=== PATIENT | male | born 1930 | race Caucasian/White ===

== ENCOUNTER 2017-10-19 09:06 | Inpatient (IN) ==
--- NOTE | 2017-10-19 09:44 | ED ---
HPI General Chief Complaint: Back Pain/Injury Stated Complaint: back pain Time Seen by Provider: 10/19/17 09:22 Source: patient and family Mode of arrival: ambulatory Limitations: no limitations History of Present Illness HPI Narrative: Patient is an 87-year-old male, past medical history significant for diffuse B-cell lymphomacurrently in remission for approximately 6 months, in addition to a DVT for which he is on Xarelto, who presents with complaint of back pain over the last 3 days that came on suddenly. He does not know what makes it better or worse. No positions change the discomfort. He denies chest pain and dyspnea. When the pain started 3 days ago he started taking Advil and did stop taking his Xarelto. No numbness nor weakness. No changes in speech, swallowing. No difficulty walking. No urinary retention or incontinence. MD Complaint: back pain Onset (ago): day(s) Duration: constant Similar Symptoms Previously: No Location: thoracic spine Severity: moderate Quality: aching Radiation: other Relieving factors: none Exacerbating factors: none Context: other Associated symptoms: denies other symptoms Treatments prior to arrival: NSAIDS Related Data Home Medications Medication Instructions Recorded Confirmed amiodarone 200 mg PO BID 10/19/17 10/19/17 carvedilol 6.25 mg PO BID 10/19/17 10/19/17 levothyroxine 50 mcg PO DAILY 10/19/17 10/19/17 rivaroxaban [Xarelto] 15 mg PO DAILY 10/19/17 10/19/17 Allergies Allergy/AdvReac Type Severity Reaction Status Date / Time No Known Allergies Allergy Uncoded 03/18/14 06:53 Review of Systems ROS: all other systems reviewed are negative Constitutional Denies chills and Denies fever(s) Eyes Denies blurry vision ENT Denies nasal congestion Cardiovascular Denies chest pain Respiratory Denies dyspnea Gastrointestinal Denies abdominal pain, Denies nausea and Denies vomiting Genitourinary Denies flank pain Musculoskeletal Reports back pain and Denies neck pain Integumentary/Breasts Denies rash Neurologic Denies headache(s) Psychiatric Denies confusion [facility] Medical History Medical History Afib (Acute) Appendicitis (Acute) B-cell lymphoma (Acute) DVT (deep venous thrombosis) (Acute) Hard of hearing (Acute) History of radiation therapy (Acute) ICD (implantable cardioverter-defibrillator) in place (Acute) Surgical History Surgical History H/O prostatectomy (Acute) Hx of cholecystectomy (Acute) Social History Social History Substance History: No History of Abuse Smoking Status: Former smoker How Often Do You Have a Drink Containing Alcohol: Monthly or less Recent Travel in [facility] within the Last 8 Weeks: No Recent Out of Country Travel within the Last 8 Weeks: No Exam Narrative Exam Narrative: GENERAL: Well-appearing male in no acute distress SKIN: Focused skin assessment warm/dry. No rashes. HEAD: Atraumatic. Normocephalic. EYES: Pupils equal and round. No scleral icterus. No injection or drainage. ENT: No nasal bleeding or discharge. Mucous membranes pink and moist. NECK: Trachea midline. No JVD. CARDIOVASCULAR: Bradycardic (50s), ICD present. No murmur appreciated. Intact and equal peripheral pulses. RESPIRATORY: No accessory muscle use. Clear to auscultation. Breath sounds equal bilaterally. GASTROINTESTINAL: Abdomen soft, non-tender, nondistended. Hepatic and splenic margins not palpable. MUSCULOSKELETAL: No obvious deformities. No clubbing. No cyanosis. No edema. NEUROLOGICAL: Awake and alert. No obvious cranial nerve deficits. Motor within normal limits. Normal sensation. No ataxia. Normal speech. PSYCHIATRIC: Appropriate mood and affect; insight and judgment normal. Back/Spine/Pelvis Male Torso BACK: 2 1. Area of pain. No pain nor tenderness at time of exam. Course Initial Documented Vital Signs Temperature 97.5 F L 10/19/17 09:11 Pulse Rate 51 L 10/19/17 09:11 Respiratory Rate 17 10/19/17 09:11 Blood Pressure 141/63 H 10/19/17 09:11 Pulse Oximetry 96 10/19/17 09:11 Last Documented Vital Signs Temperature 97.5 F L 10/19/17 09:11 Pulse Rate 49 L 10/19/17 11:49 Respiratory Rate 18 10/19/17 11:49 Blood Pressure 151/69 H 10/19/17 11:49 Pulse Oximetry 97 10/19/17 11:49 Medical Decision Making MDM Narrative Medical decision making narrative: Patient is an 87-year-old male, past medical history significant for diffuse B-cell lymphoma and DVT for which he is supposed to be on Xarelto, who presents with complaint of left upper back pain for 3 days. He is hemodynamically stable on arrival to the emergency department. On arrival a CT PE was ordered as this would evaluate for, and could also evaluate the thoracic spine this could not be done secondary to his baseline renal dysfunction. CT of the thoracic spine was then done did not show any acute injury. VQ scan showed a low intermediate probability of a pulmonary embolism. Patient was given his Xarelto and admitted to the hospital for further evaluation and management of his possible pulmonary embolism. Differential Diagnosis Differential Diagnosis: Differential diagnosis includes but is not limited to acute coronary syndrome, pulmonary embolism, aortic dissection, metastatic disease, pneumonia, muscle spasm. Medical Records Medical records reviewed: Yes I reviewed the patient's medical records. Lab Data Lab results reviewed: Yes I reviewed the patient's lab results. Lab results narrative: Labs unremarkable except for baseline renal dysfunction. Result diagrams: 10/19/17 09:38 10/19/17 09:38 Lab Results 10/19/17 10/19/17 Range/Units 09:38 09:38 WBC 6.2 (4.0-11.0) th/mm3 RBC 4.98 (4.50-5.90) mil/mm3 Hgb 13.6 (13.0-17.0) gm/dL Hct 41.4 (39.0-51.0) % MCV 83.0 (80.0-100.0) fL MCH 27.3 (27.0-34.0) pg MCHC 32.9 (32.0-36.0) % RDW 16.4 (11.6-17.2) % Plt Count 199 (150-450) th/mm3 MPV 8.9 (7.0-11.0) fL Neut % (Auto) 71.7 H (16.0-70.0) % Lymph % (Auto) 15.8 (9.0-44.0) % Dixon % (Auto) 10.2 H (0.0-8.0) % Eos % (Auto) 1.6 (0.0-4.0) % Baso % (Auto) 0.7 (0.0-2.0) % Neut # (Auto) 4.4 (1.8-7.7) th/mm3 Lymph # (Auto) 1.0 (1.0-4.8) th/mm3 Dixon # (Auto) 0.6 (0.0-0.9) th/mm3 Eos # (Auto) 0.1 (0.0-0.4) th/mm3 Baso # (Auto) 0.0 (0.0-0.2) th/mm3 WBC Differential . Differential Comment Auto diff final Sodium 130 L (136-145) meq/L Potassium 4.3 (3.5-5.1) meq/L Chloride 98 (98-107) meq/L Carbon Dioxide 21.6 (21.0-32.0) meq/L Anion Gap 10 (5-15) meq/L BUN 36 H (7-18) mg/dL Creatinine 2.49 H (0.60-1.30) mg/dL Estimated GFR 25 L (>89) mL/min Random Glucose 96 (74-106) mg/dL Calcium 8.1 L (8.5-10.1) mg/dL Troponin I Less than 0.02 L (0.02-0.05) ng/mL Imaging Data Attestation: I personally reviewed and interpreted this imaging study as follows : My impression: Chest x-rays without acute cardiopulmonary process. Radiologist's impression: Chest X-Ray 10/19/17 09:35 CONCLUSION: Cardiomegaly with clear lungs. Pulmonary Perfusion Imaging 10/19/17 10:35 CONCLUSION: 1. Low to intermediate probability. Thoracic Spine CT 10/19/17 10:35 CONCLUSION: 1. Prominent degenerative changes, greatest at T11-12 there is mild canal stenosis. 2. No fracture. 3. Small pleural effusions and bibasilar densities likely atelectasis. ECG Data EKG Prior to Arrival: No Attestation: I personally reviewed and interpreted this ECG as follows: Discharge Plan Discharge Disposition Patient Disposition: 30 Still Patient Discharge Condition Condition: Stable Discharge Details Diagnosis: Acute pulmonary embolism Physicians Team ED Provider: Mirtha Holguin Primary Care Provider: Primary Care Gopi,Sabi Attending Provider: Karine Velez Other Providers: Feliz Fuentes Status ED Status: Admitted Patient
[2017-10-19 09:46] LABS: Baso % (Auto) 0.7 % (0.0-2.0); Eos # (Auto) 0.1 th/mm3 (0.0-0.4); Eos % (Auto) 1.6 % (0.0-4.0); Hematocrit 41.4 % (39.0-51.0); Hemoglobin 13.6 gm/dL (13.0-17.0); Lymph % (Auto) 15.8 % (9.0-44.0); Mean Corpuscular HGB Conc 32.9 % (32.0-36.0); Mean Corpuscular Hemoglobin 27.3 pg (27.0-34.0); Mean Platelet Volume 8.9 fL (7.0-11.0); Mono # (Auto) 0.6 th/mm3 (0.0-0.9); Mono % (Auto) 10.2 % (0.0-8.0); Neut # (Auto) 4.4 th/mm3 (1.8-7.7); Neut % (Auto) 71.7 % (16.0-70.0); Platelet Count 199 th/mm3 (150-450); Red Blood Count 4.98 mil/mm3 (4.50-5.90); Red Cell Distribution Width 16.4 % (11.6-17.2); White Blood Count 6.2 th/mm3 (4.0-11.0)
--- NOTE | 2017-10-19 10:03 | XR ---
EXAM DATE: 10/19/2017 9:46 AM EDT AGE/SEX: 87 years / Male INDICATIONS: Chest pain CLINICAL DATA: This is the patient's initial encounter. Patient reports that signs and symptoms have been present for 1 day and indicates a pain score of 0/10. MEDICAL/SURGICAL HISTORY: Cardiovascular disease. Pacemaker. [place] [facility] [place]. . FINDINGS: A single AP view of the chest demonstrates cardiomegaly. Left-sided defibrillator unchanged. Lungs ar e clear. Prominent degenerative changes right shoulder. The cardiomediastinal contours are unremarka ble. Osseous structures are intact. CONCLUSION: Cardiomegaly with clear lungs. Electronically signed by: Ishmael Henry MD 10/19/2017 10:01 AM EDT
[2017-10-19 10:14] LABS: Anion Gap 10 meq/L (5-15); Blood Urea Nitrogen 36 mg/dL (7-18); Calcium 8.1 mg/dL (8.5-10.1); Carbon Dioxide 21.6 meq/L (21.0-32.0); Chloride 98 meq/L (98-107); Glomerular Filtration Rate 25 mL/min (>89); Glucose,Random 96 mg/dL (74-106); Potassium 4.3 meq/L (3.5-5.1); Sodium 130 meq/L (136-145)
--- NOTE | 2017-10-19 12:20 | CT ---
EXAM DATE: 10/19/2017 12:13 PM EDT AGE/SEX: 87 years / Male INDICATIONS: Left upper back pain 3 days 3 days, No known injury CLINICAL DATA: This is the patient's initial encounter. Patient reports that signs and symptoms have been present for 3 days and indicates a pain score of 2/10. MEDICAL/SURGICAL HISTORY: . B-Cell lymphoma to sternal region, Atrial Fib Defibrillator. Cholecys tectomy. RADIATION DOSE: 16.89 CTDI (mGy) COMPARISON: No prior exams available for comparison. TECHNIQUE: Contiguous axial images were acquired using a multirow detector CT scanner without contra st. Multiplanar reconstruction in the sagittal and coronal planes was performed. Using automated exp osure control and adjustment of the mA and/or kV according to patient size, radiation dose was kept a s low as reasonably achievable to obtain optimal diagnostic quality images. DICOM format image data is available electronically for review and comparison. FINDINGS: Vertebrae: Normal vertebral body height. Small pleural effusions and bibasilar densities. Degenerati ve changes throughout the thoracic spine. Multiple anterior bridging osteophytes. Alignment: Normal. No subluxation. T1 - T2: Normal. T2 - T3: The thecal sac has a normal diameter. No evidence of disc bulge or protrusion. T3 - T4: The thecal sac has a normal diameter. No evidence of disc bulge or protrusion. T4 - T5: The thecal sac has a normal diameter. No evidence of disc bulge or protrusion. T5 - T6: The thecal sac has a normal diameter. No evidence of disc bulge or protrusion. T6 - T7: The thecal sac has a normal diameter. No evidence of disc bulge or protrusion. T7 - T8: The thecal sac has a normal diameter. No evidence of disc bulge or protrusion. T8 - T9: The thecal sac has a normal diameter. No evidence of disc bulge or protrusion. T9 - T10: The thecal sac has a normal diameter. No evidence of disc bulge or protrusion. T10 - T11: The thecal sac has a normal diameter. No evidence of disc bulge or protrusion. T11 - T12: Prominent posterior disc osteophyte complex at T11-12 causing mild canal stenosis. T12 - L1: The thecal sac has a normal diameter. No evidence of disc bulge or protrusion. CONCLUSION: 1. Prominent degenerative changes, greatest at T11-12 there is mild canal stenosis. 2. No fracture. 3. Small pleural effusions and bibasilar densities likely atelectasis. Electronically signed by: Ishmael Henry MD 10/19/2017 12:18 PM EDT
--- NOTE | 2017-10-19 12:26 | NM ---
EXAM DATE: 10/19/2017 12:23 PM EDT AGE/SEX: 87 years / Male INDICATIONS: Dyspnea. CLINICAL DATA: This is the patient's initial encounter. Patient reports that signs and symptoms have been present for 1 day and indicates a pain score of 0/10. MEDICAL/SURGICAL HISTORY: Deep venous thrombosis. Lymphoma. Defibrillator. Cholecystectomy. Prostatectomy. COMPARISON: [facility], CHEST 1V SINGLE AP, 10/19/2017. . DOSE: 1.2 mCi Tc99m DTPA aerosol 8.5 mCi Tc99m MAA IV TECHNIQUE: Following five minutes of tidal breathing of DTPA aerosol, planar images of the lungs wer e performed in eight projections. The patient was then injected with MAA, and eight-view perfusion s can was performed. FINDINGS: There is a heterogeneous pattern of aerosol delivery to the periphery of both lungs. Small matched de fects are seen. The perfusion lung scan demonstrates small scattered subsegmental defects seen. CONCLUSION: 1. Low to intermediate probability. Electronically signed by: Ishmael Henry MD 10/19/2017 12:25 PM EDT
[2017-10-19] MEDS ORDERED: Rivaroxaban 10 MG Tablet PO ONE (13:40)
--- NOTE | 2017-10-19 13:45 | ECG ---
Date Performed: 10/19/2017 Time Performed: 09:50:32 PTAGE: 87 years EKG: ATRIAL FLUTTER/TACHYCARDIA WITH SLOW VENTRICULAR RESPONSE RIGHT BUNDLE BRANCH BLOCK ABNORMA L ECG PREVIOUS TRACING : 08/23/2014 04.10 DOCTOR: Jc Culver Interpretating Date/Time 10/19/2017 13:43:12
[2017-10-19] MEDS ORDERED: Bisacodyl 10 MG Supp RECTAL PRN (15:17)
[2017-10-19] MEDS ORDERED: Acetaminophen 325 MG Tablet PO PRN (15:17)
--- NOTE | 2017-10-19 15:38 | P.HPIM ---
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 The patient states he had sudden onset of right upper back pain around his scapula starting about 3-4 days ago. He denies any injury, trauma, fall, or recent heavy lifting. The pain did not radiate and was not associated with shortness of breath, dizziness, diaphoresis, lightheadedness, or syncope. He describes the pain as sharp and states he couldn't find a comfortable position through ambulating seemed to relieve it. He states he took ASA and Tylenol for the pain with minimal improvement. Because he read that he shouldn't combine his Xarelto with other blood thinners, he stopped taking his Xarelto during this time. He states since taking a long, hot shower this morning the pain has gone away. He proceeded to come to the ER for evaluation just to make sure it was nothing serious. He denies chest pain, pleuritic pain, palpitations, heart racing, abdominal pain, nausea, vomiting, lower extremity swelling or pain, headache, or lateralizing symptoms. He denies any recent long car or plane trips though he states he was on a plane for about two hours in August. Denies recent surgery or sedentary activity. - Diagnosis (1) Pulmonary embolism (2) Back pain Inpatient Certification: I certify that the inpatient services were ordered in accordance with Medicare regulations governing the order. This includes certification that hospital inpatient services are reasonable and necessary and in the case of services not specified as inpatient-only under 42 CFR 419.22(n), that they are appropriately provided as inpatient services in accordance to with the 2-midnight benchmark under 43 CFR 412.3(e) Estimated Total Length of Stay (Days): 2 Plans for Post Hospital Care: Home Review of Systems All other systems reviewed negative except as stated in HPI [facility] - History History Provided By: Patient, Family Member - Medical History Medical History: Medical History (Last Updated 10/19/17 @ 15:49 by Karine Velez MD) Afib B-cell lymphoma Cancer of appendix Chronic kidney disease (CKD) DVT (deep venous thrombosis) Hard of hearing History of radiation therapy ICD (implantable cardioverter-defibrillator) in place - Surgical History Surgical History: Surgical History (Last Updated 10/19/17 @ 15:50 by Karine Velez MD) H/O prostatectomy Hx of appendectomy Hx of cholecystectomy - Family History Family History: Family History (Last Updated 10/19/17 @ 15:50 by Karine Velez MD) Mother Alzheimer disease - Tobacco History Tobacco Use In Past 30 Days: No Smoking Status: Former smoker (Smoked cigars >40 years ago) - Alcohol History How Often Do You Have a Drink Containing Alcohol: Monthly or less - Substance Use History Substance History: No History of Abuse - Travel History Recent Travel in the [place] Within the Last 8 Weeks: No Recent Travel Out of the Country Within the Last 8 Weeks: No - Immunization History Tetanus Immunization: Unsure Hx Influenza Vaccine This Season: Yes Medications and Allergies Active Medications: Active Medications Acetaminophen (Tylenol) 650 mg PO Q4H PRN PRN Reason: Temp > 100.4 Al Hydroxide/Mg Hydroxide (Milk Of Magnesia Liq) 30 ml PO Q12H PRN PRN Reason: Mild Constipation Amiodarone HCl (Cordarone) 200 mg PO BID VINICIO Bisacodyl (Dulcolax Supp) 10 mg RECTAL DAILY PRN PRN Reason: SEVERE CONSITIPATION Carvedilol (Coreg) 6.25 mg PO BID [facility] Lactulose (Lactulose Liq) 30 ml PO DAILY PRN PRN Reason: SEVERE CONSITIPATION Levothyroxine Sodium (Synthroid) 50 mcg PO DAILY@0600 VINICIO Ondansetron HCl (Zofran Inj) 4 mg IV.PUSH Q6H PRN PRN Reason: NAUSEA OR VOMITING Rivaroxaban (Xarelto) 15 mg PO DAILY VINICIO Rivaroxaban (Xarelto) 15 mg PO ONCE ONE Stop: 10/19/17 16:01 Senna/Docusate Sodium (Kandy-Colace) 1 tab PO BID [facility] Sennosides (Senokot) 17.2 mg PO Q12H PRN PRN Reason: Moderate Constipation Sodium Chloride (Ns Flush) 2 ml IV.FLUSH UNSCH PRN PRN Reason: FLUSH AFTER USING IV ACCESS Temazepam (Restoril) 15 mg PO HS PRN PRN Reason: INSOMNIA Allergies Allergy/AdvReac Type Severity Reaction Status Date / Time No Known Allergies Allergy Uncoded 03/18/14 06:53 Home Medications Medication Instructions Recorded Confirmed Type amiodarone 200 mg PO BID 10/19/17 10/19/17 History carvedilol 6.25 mg PO BID 10/19/17 10/19/17 History levothyroxine 50 mcg PO DAILY 10/19/17 10/19/17 History rivaroxaban [Xarelto] 15 mg PO DAILY 10/19/17 10/19/17 History Exam Vital signs: Vital Signs 10/19/17 09:11 10/19/17 09:15 10/19/17 09:51 Temperature 97.5 F L Pulse Rate 51 L 51 L Pulse Rate [Left Radial] Respiratory Rate 17 17 Blood Pressure 141/63 H 144/75 H Blood Pressure [Left Arm] Pulse Oximetry 96 96 96 10/19/17 09:58 10/19/17 11:49 Temperature Pulse Rate 49 L Pulse Rate [Left Radial] 55 L Respiratory Rate 17 18 Blood Pressure 151/69 H Blood Pressure [Left Arm] 145/69 H Pulse Oximetry 96 97 Intake & Output 10/18/17 10/19/17 10/19/17 18:59 06:59 18:59 Weight 63.503 kg Narrative: GENERAL: WN, WD male resting in bed in [facility]. SKIN: Warm and dry. ICD in place L chest. No surrounding erythema. HEENT: AT/NC. Pupils equal and round. MMM. NECK: Supple no tender LAD or JVD. HEART: Bradycardic with no appreciable murmurs. LUNGS: CTAB without wheezes or crackles. ABDOMEN: +BS, soft, NT, ND. BACK: Mild TTP over paraspinous muscles of upper back in between scapula. No bony tenderness. No gross abnormalities. EXTREMITIES: No LE edema. Calves supple and nontender. 2+ pedal pulses. NEURO: Awake and alert. Nonfocal. CN II-XII intact. PSYCH: Appropriate mood and affect. Results - Labs CBC & Chem 7: 10/19/17 09:38 10/19/17 09:38 Labs: Short CBC 10/19/17 Range/Units 09:38 WBC 6.2 (4.0-11.0) th/mm3 Hgb 13.6 (13.0-17.0) gm/dL Hct 41.4 (39.0-51.0) % Plt Count 199 (150-450) th/mm3 BMP 10/19/17 09:38 Sodium 130 L Potassium 4.3 Chloride 98 Carbon Dioxide 21.6 BUN 36 H Creatinine 2.49 H Calcium 8.1 L Cardiac Enzymes 10/19/17 Range/Units 09:38 Troponin I Less than 0.02 L (0.02-0.05) ng/mL - Imaging Impressions Chest X-Ray 10/19/17 09:35 CONCLUSION: Cardiomegaly with clear lungs. Pulmonary Perfusion Imaging 10/19/17 10:35 CONCLUSION: 1. Low to intermediate probability. Thoracic Spine CT 10/19/17 10:35 CONCLUSION: 1. Prominent degenerative changes, greatest at T11-12 there is mild canal stenosis. 2. No fracture. 3. Small pleural effusions and bibasilar densities likely atelectasis. Caprini VTE Risk Assessment Caprini VTE Risk Assessment: Moderate/High Risk (score >= 2) Caprini Risk Assessment Model: Point Value = 1 Point Value = 2 Point Value = 3 Point Value = 5 Age 41-60 Minor surgery BMI > 25 kg/m2 Swollen legs Varicose veins or History of unexplained or recurrent spontaneous Oral contraceptives or hormone replacement Sepsis (< 1 month) Serious lung disease, including pneumonia (< 1 month) Abnormal pulmonary function Acute myocardial infarction Congestive heart failure (< 1 month) History of inflammatory bowel disease Medical patient at bed rest Age 61-74 Arthroscopic surgery Major open surgery (> 45 min) Laparoscopic surgery (> 45 min) Malignancy Confined to bed (> 72 hours) Immobilizing plaster cast Central venous access Age >= 75 History of VTE Family history of VTE Factor V Leiden Prothrombin 54133C Lupus anticoagulant Anticardiolipin antibodies Elevated serum homocysteine Heparin-induced thrombocytopenia Other congenital or acquired thrombophilia Stroke (< 1 month) Elective arthroplasty Hip, pelvis, or leg fracture Acute spinal cord injury (< 1 month) Prophylaxis Regimen: Total Risk Factor Score Risk Level Prophylaxis Regimen 0-1 Low Early ambulation 2 Moderate Order ONE of the following: *Sequential Compression Device (SCD) *Heparin 5000 units SQ BID 3-4 Higher Order ONE of the following medications: *Heparin 5000 units SQ TID *Enoxaparin/Lovenox 40 mg SQ daily (WT < 150 kg, CrCl > 30 mL/min) *Enoxaparin/Lovenox 30 mg SQ daily (WT < 150 kg, CrCl > 10-29 mL/min) *Enoxaparin/Lovenox 30 mg SQ BID (WT < 150 kg, CrCl > 30 mL/min) AND/OR *Sequential Compression Device (SCD) 5 or more Highest Order ONE of the following medications: *Heparin 5000 units SQ TID (Preferred with Epidurals) *Enoxaparin/Lovenox 40 mg SQ daily (WT < 150 kg, CrCl > 30 mL/min) *Enoxaparin/Lovenox 30 mg SQ daily (WT < 150 kg, CrCl > 10-29 mL/min) *Enoxaparin/Lovenox 30 mg SQ BID (WT < 150 kg, CrCl > 30 mL/min) AND *Sequential Compression Device (SCD) Assessment and Plan - Assessment (1) Pulmonary embolism Code(s): I26.99 - Other pulmonary embolism without acute cor pulmonale Status : Acute (2) Back pain Code(s): M54.9 - Dorsalgia, unspecified Status: Acute - Plan 87 year old male with history of HTN, CKD, AFIB, 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 1. Possible pulmonary embolism - V/Q scan done as patient's CKD precludes him from diagnostic CTA. D demonstrates small scattered subsegmental defects with low to intermediate probability for small subsegmental pulmonary emboli - No hypoxia or tachycardia - Troponin less than 0.02, no evidence of heart strain - EKG with atrial flutter, RBBB (unchanged from prior) - Unsure if this is truly PE or if it is what the acuity is - Will resume Xarelto since hemodynamically stable, currently asymptomatic, and not hypoxic - Consult patient's bdr Dr. Fuentes to weight in - Check Dopplers of the LE though clinically no signs of DVT - Check 2D echo to assess R heart function - Rule out with serial troponins and EKGs - Supplemental O2 PRN 2. Back pain - Unsure if back pain is secondary to possible PE or if an acute strain prompted an incidental abnormal V/Q scan - On exam he has paraspinous muscular tenderness and it is possible somehow he strained the muscle - T-spine CT showed prominent degenerative changes, no fracture - Pain resolved with hot shower - Heat pads PRN - Flexeril PRN, caution and monitor closely given age - PT to eval and treat 3. HTN - Controlled - Continue carvedilol 4. AFIB - Rate-controlled - ICD in place - Continue amiodarone and carvedilol - Continue Xarelto 5. Hypothyroidism - Continue home Synthroid 6. CKD - Creatinine appears to be at baseline at least since 2016 - Follows with Dr. Yanes as outpatient - Avoid nephrotoxic agents - Renally dose meds - Monitor renal function DVT prophylaxis: Xarelto Code Status: Full Discussed Condition With: Dr. Holguin, patient Discharge Planning: Possibly in next 1-2 days if patient remains hemodynamically stable and oncology has evaluated
[2017-10-19] MEDS ORDERED: Rivaroxaban 15 MG Tablet PO ONE (16:00)
--- NOTE | 2017-10-19 19:24 | US ---
EXAM DATE: 10/19/2017 7:09 PM EDT AGE/SEX: 87 years / Male INDICATIONS: Bilateral leg swelling. CLINICAL DATA: This is the patient's initial encounter. Patient reports that signs and symptoms have been present for > 1 year and indicates a pain score of 0/10. MEDICAL/SURGICAL HISTORY: . A-fib. B-cell lymphoma. Appendix cancer. CKD. Right leg DVT. Appen dectomy. Cholecystectomy. Prostatectomy. COMPARISON: No prior exams available for comparison. TECHNIQUE: Venous ultrasound of both lower extremities was performed from the inguinal ligament to t he proximal calf. Real-time, color Doppler and spectral tracing, compression and augmentation techni ques were used. FINDINGS: Right Leg: There is incomplete compression incomplete filling with color Doppler flow of the right s uperficial femoral vein diffusely and popliteal vein. Right common femoral vein demonstrates normal c ompression and color Doppler flow. Calf veins showed normal color Doppler flow and compression. Left Leg: Normal compression of the deep venous system from the inguinal region to the proximal calf . No echogenic clot is seen. Normal response of the venous system to augmentation and respiration. Other: None. CONCLUSION: 1. Nonocclusive DVT of the right lower extremity involving the superficial femoral vein and poplitea l vein. Finding is age-indeterminate. 2. No evidence of lower extremity DVT on the left. Electronically signed by: Ace Zimmer MD 10/19/2017 7:23 PM EDT
[2017-10-19] MEDS ORDERED: Temazepam 15 MG Capsule PO PRN (21:00)
[2017-10-19] MEDS: Amiodarone 200 MG Tablet PO SCH (21:16)
[2017-10-19] MEDS: Senna/Docusate Sodium 8.6/50 MG Tablet PO SCH ×2 (21:17→21:19)
[2017-10-20] MEDS ORDERED: Levothyroxine 50 MCG Tablet PO SCH (06:00)
[2017-10-20 07:12] LABS: Baso % (Auto) 0.8 % (0.0-2.0); Eos # (Auto) 0.1 th/mm3 (0.0-0.4); Eos % (Auto) 1.4 % (0.0-4.0); Hematocrit 40.4 % (39.0-51.0); Hemoglobin 13.5 gm/dL (13.0-17.0); Lymph # (Auto) 1.1 th/mm3 (1.0-4.8); Lymph % (Auto) 16.3 % (9.0-44.0); Mean Corpuscular HGB Conc 33.4 % (32.0-36.0); Mean Corpuscular Hemoglobin 27.6 pg (27.0-34.0); Mean Corpuscular Volume 82.7 fL (80.0-100.0); Mean Platelet Volume 8.8 fL (7.0-11.0); Mono # (Auto) 0.8 th/mm3 (0.0-0.9); Mono % (Auto) 12.2 % (0.0-8.0); Neut # (Auto) 4.6 th/mm3 (1.8-7.7); Neut % (Auto) 69.3 % (16.0-70.0); Platelet Count 199 th/mm3 (150-450); Red Blood Count 4.88 mil/mm3 (4.50-5.90); Red Cell Distribution Width 16.9 % (11.6-17.2); White Blood Count 6.6 th/mm3 (4.0-11.0)
[2017-10-20 07:47] LABS: Calcium 8.6 mg/dL (8.5-10.1); Carbon Dioxide 22.6 meq/L (21.0-32.0); Potassium 4.1 meq/L (3.5-5.1)
[2017-10-20] MEDS ORDERED: Rivaroxaban 15 MG Tablet PO SCH (09:00)
[2017-10-20] MEDS: Amiodarone 200 MG Tablet PO SCH (09:30)
[2017-10-20] MEDS: Senna/Docusate Sodium 8.6/50 MG Tablet PO SCH (09:31)
--- NOTE | 2017-10-20 10:36 | P.PNIM ---
Subjective Interval history: Pt seen and examined this AM for f/u of back pain and possible PE. Pt states his back pain flared up again overnight. Reports it is just over his L upper back region around his scapula and just lateral to the spine. Pain is aggravated by twisting and laying supine. He states he only gets relief when he takes a hot shower. He is going to try a muscle relaxer. He denies CP, SOB, abdominal pain, N/V. He is tolerating PO. He is ambulating. Physical Exam Vital signs: Vital Signs 10/19/17 11:49 10/19/17 15:53 10/19/17 19:45 Temperature 97.5 F L Pulse Rate 49 L 55 L 52 L Respiratory Rate 18 17 17 Blood Pressure 151/69 H 160/70 H 137/59 L Pulse Oximetry 97 96 92 L 10/19/17 20:00 10/19/17 22:36 10/19/17 23:05 Temperature 98.6 F Pulse Rate 46 L 47 L Respiratory Rate 17 Blood Pressure 133/64 Pulse Oximetry 91 L 91 L 10/19/17 23:59 10/20/17 04:00 10/20/17 04:58 Temperature 98.2 F Pulse Rate 41 L 48 L 53 L Respiratory Rate 17 Blood Pressure 139/80 Pulse Oximetry 93 L 10/20/17 09:19 Temperature Pulse Rate Respiratory Rate Blood Pressure Pulse Oximetry 98 Intake & Output 10/19/17 10/20/17 10/20/17 18:59 06:59 18:59 Intake Total 240 / 240 Balance 240 / 240 Weight 63.503 kg 63.5 kg Intake: Oral 240 / 240 Other: # Voids 2 Date of Last Bowel Movement 10/19/17 10/19/17 # Bowel Movements 0 Weight On Admission 63.503 kg Narrative: GENERAL: WN, WD male sitting up in chair eating breakfast in NAD. SKIN: Warm and dry. HEART: IRR no m/r/g. LUNGS: Breathing comfortably on room air. CTAB without wheezes or crackles. ABDOMEN: +BS, soft, NT, ND. EXTREMITIES: No LE edema. No palpable cords. Calves supple and nontender. BACK: TTP along L paraspinous muscles around the level of the scapula. There is some palpable muscle tightness. UE strength 5/5. NEURO: Awake and alert. Nonfocal. PSYCH: Appropriate mood and affect. Results - Labs CBC & Chem 7: 10/20/17 06:42 10/20/17 06:42 Laboratory Results - last 24 hr 10/19/17 10/19/17 10/20/17 15:28 22:34 06:42 WBC 6.6 RBC 4.88 Hgb 13.5 Hct 40.4 MCV 82.7 MCH 27.6 MCHC 33.4 RDW 16.9 Plt Count 199 MPV 8.8 Neut % (Auto) 69.3 Lymph % (Auto) 16.3 Rock % (Auto) 12.2 H Eos % (Auto) 1.4 Baso % (Auto) 0.8 Neut # (Auto) 4.6 Lymph # (Auto) 1.1 Rock # (Auto) 0.8 Eos # (Auto) 0.1 Baso # (Auto) 0.0 WBC Differential . Differential Comment Auto diff final Sodium Potassium Chloride Carbon Dioxide Anion Gap BUN Creatinine Estimated GFR Random Glucose Calcium Troponin I Less than 0.02 L Less than 0.02 L 10/20/17 06:42 WBC RBC Hgb Hct MCV MCH MCHC RDW Plt Count MPV Neut % (Auto) Lymph % (Auto) Rock % (Auto) Eos % (Auto) Baso % (Auto) Neut # (Auto) Lymph # (Auto) Rock # (Auto) Eos # (Auto) Baso # (Auto) WBC Differential Differential Comment Sodium 138 Potassium 4.1 Chloride 106 D Carbon Dioxide 22.6 Anion Gap 9 BUN 32 H Creatinine 2.21 H Estimated GFR 28 L Random Glucose 83 Calcium 8.6 Troponin I - Imaging Impressions Venous Doppler Study 10/19/17 00:00 CONCLUSION: 1. Nonocclusive DVT of the right lower extremity involving the superficial femoral vein and popliteal vein. Finding is age-indeterminate. 2. No evidence of lower extremity DVT on the left. Pulmonary Perfusion Imaging 10/19/17 10:35 CONCLUSION: 1. Low to intermediate probability. Thoracic Spine CT 10/19/17 10:35 CONCLUSION: 1. Prominent degenerative changes, greatest at T11-12 there is mild canal stenosis. 2. No fracture. 3. Small pleural effusions and bibasilar densities likely atelectasis. 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 Today we are waiting for a 2D echo to be done and the patient to be evaluated by hematology. 1. Possible pulmonary embolism - V/Q scan done as patient's CKD precludes him from diagnostic CTA. Demonstrates small scattered subsegmental defects with low to intermediate probability for small subsegmental pulmonary emboli - No hypoxia or tachycardia - Serial troponins negative - EKG with atrial flutter, RBBB (unchanged from prior) - Unsure if this is truly PE or if it is what the acuity is - Will resume Xarelto since hemodynamically stable, currently asymptomatic, and not hypoxic - Consult patient's evp of products & co founder Dr. Fuentes to weigh in - B/L Dopplers of the LE show nonocclusive DVT of the RLE involving the superficial femoral vein and popiteal vein and no evidence of DVT on the left - Check 2D echo to assess R heart function - Rule out with serial troponins and EKGs - Supplemental O2 PRN 2. Back pain - Unsure if back pain is secondary to possible PE or if an acute strain/muscle spasm prompted an incidental abnormal V/Q scan - On exam he has paraspinous muscular tenderness and it is possible he has some muscle spasms - T-spine CT showed prominent degenerative changes, no fracture - Pain improves with hot shower - Heat pads PRN - Flexeril PRN, caution and monitor closely given age - Tylenol PRN - No NSAIDs given CKD - PT to eval and treat 3. HTN - Controlled - Continue carvedilol 4. AFIB - Rate-controlled - ICD in place - Continue amiodarone and carvedilol - Continue Xarelto 5. Hypothyroidism - Continue home Synthroid 6. CKD - Creatinine appears to be at baseline at least since 2016 - Follows with Dr. Yanes as outpatient - Avoid nephrotoxic agents - Renally dose meds - Monitor renal function 7. RLE DVT - Pt has history of DVT in his RLE from a few years ago - This is probably old though the finding is age-indeterminant - Continue Xarelto DVT prophylaxis: Xarelto Discussed Condition With: Patient Discharge Planning: Possibly in next 1-2 days if patient remains hemodynamically stable and oncology has evaluated
[2017-10-20 15:09] VITALS: BP 146/71; PULSE 49; RESP 18; TEMP 97.7; O2SAT 96
--- NOTE | 2017-10-20 16:18 | ECG ---
Date Performed: 10/19/2017 Time Performed: 15:28:06 PTAGE: 87 years EKG: ATRIAL FIBRILLATION RIGHT BUNDLE BRANCH BLOCK Since the previous tracing, no significant ch noah noted ABNORMAL ECG PREVIOUS TRACING : 10/19/2017 09.50 DOCTOR: Karely Perez Interpretating Date/Time 10/20/2017 16:17:46
--- NOTE | 2017-10-20 16:20 | ECG ---
Date Performed: 10/19/2017 Time Performed: 22:00:39 PTAGE: 87 years EKG: ATRIAL FIBRILLATION WITH SLOW VENTRICULAR RESPONSE RIGHT BUNDLE BRANCH BLOCK Since the prev ious tracing, no significant change noted ABNORMAL ECG PREVIOUS TRACING : 10/19/2017 15.28 DOCTOR: Karely Perez Interpretating Date/Time 10/20/2017 16:19:01
--- NOTE | 2017-10-20 18:11 | MB ---
cc: Feliz Fuentes MD DATE: 10/20/2017 REASON FOR CONSULTATION: 1. Previous history of large cell lymphoma. 2. Abnormal lung scan with possibility of pulmonary emboli. PATIENT PROFILE: Singh Sommer is an 87-year-old gentleman, who is well known to me. He is . He is retired. He was an senior electrical project manager. He never smoked cigarettes. In the past he smoked cigars. There is no significant history of alcohol use. 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 He was observed without any intervention until he developed a destructive mass involving the sternum. A biopsy revealed a large cell lymphoma. He received 3 cycles of R-CHOP, followed by radiation. The radiation was completed in 07/2014. Since completing the radiation, he has done well. He has had no evidence of recurrence. There have been no fever, night sweats, or chills. He has not had any adenopathy. He is having problems with aging, memory is faltering and he is frail. He has mild renal failure. The current admission was precipitated by pain over the left scapular area occurring about 5 days ago. Onset appeared to be acute. The pain tends to occur, based on body movement such as swinging the shoulders. It is located in the left scapular area. There has been no shortness of breath, no pleuritic pain, although the pain is sharp. He did take an Advil at one point, and it has helped. A warm shower helped as well. DIAGNOSTIC STUDIES: A chest x-ray on 10/19/2017 showed cardiomegaly with clear lungs. He has a left-sided defibrillator. He had a perfusion lung scan on 10/19/2012 showing a low to intermediate probability of a pulmonary embolus. There were small matched defects seen. The perfusion lung scan demonstrated small scattered subsegmental defects as well. Other studies included a thoracic CT scan of the spine, showing only arthritic problems. There was no evidence of lymphoma. The patient had small pleural effusions and bibasilar densities, likely atelectasis. There is no evidence of fracture. An EKG showed atrial fibrillation with a slow ventricular response, and a right bundle branch. Hemoglobin 13.5, white count 6600, platelets 199,000. Electrolytes: BUN and creatinine, liver function tests notable for a creatinine of 2.2, BUN 32. LDH 252, upper limit of normal 241. Troponin 0.2. The patient had venous Doppler studies on 10/19/2017 showing a nonocclusive DVT of the right lower extremity involving the superficial femoral vein and popliteal vein. Findings were age indeterminate. There was no evidence of lower extremity DVT on the left. Of note, the patient is taking Xarelto 15 mg a day. He has had no calf swelling or pain. PAST SURGICAL HISTORY: 1. Cholecystectomy. 2. Squamous cell cancer, left arm. 3. Appendectomy with laparoscopic appendectomy showing signet ring cell carcinoma involving the appendix. 4. Melanoma in 2004. 5. Total prostatectomy 25 years ago. 6. Benign prostatic hypertrophy. PAST MEDICAL HISTORY: 1. Low-grade lymphoma turning into high-grade lymphoma, treated with chemotherapy and radiation, without recurrence. 2. Placement of ICD device following cardiac arrest. 3. The patient had a DVT involving the right leg in 2013. MEDICATIONS: 1. Amiodarone. 2. Coreg. 3. Flexeril. 4. Lactulose. 5. Synthroid. 6. Xarelto. ALLERGIES: NO KNOWN ALLERGIES. FAMILY HISTORY: Noncontributory. REVIEW OF SYSTEMS: Notable for patient has glasses. Hearing is decreased. No chest pain or palpitations. No shortness of breath. No abdominal or pelvic pain. No melena or hematochezia. No dysuria or frequency. Has pain over the left scapula and pain in the back area. The rest of the review of systems is otherwise unremarkable. PHYSICAL EXAMINATION: GENERAL: Reveals a well-appearing gentleman, hard of hearing. VITAL SIGNS: Blood pressure 140/70, respiratory rate 18, pulse 58, afebrile. HEENT: Head is normocephalic. Sclerae and conjunctivae are normal. Oropharynx unremarkable. LYMPHATIC: There is no cervical, supraclavicular, axillary or inguinal adenopathy. HEART: Question irregular rhythm, rate 55. LUNGS: Clear without rales, wheezes, or rhonchi. ABDOMEN: Without hepatosplenomegaly or masses. EXTREMITIES: Trace edema. MUSCULOSKELETAL: There is definite tenderness of the paravertebral musculature involving the upper mid thoracic area. This is the area, where he has the pain. NEUROLOGIC: No focal weakness. SKIN: Normal. ASSESSMENT: 1. History of large cell lymphoma. I see no evidence of recurrence. 2. I do not believe the patient has had a pulmonary embolus. His ultrasound does show a venous thrombosis in the right leg, but according to my records, this was documented a number of years ago and, therefore, this is, in fact, not new. His current history is not suggestive of a pulmonary embolus. He does not have any shortness of breath or pleurisy. He has tenderness involving the musculature of the back, and this is what causes his pain. RECOMMENDATIONS: At this point, I would not recommend discontinuing the Xarelto or changing to another medicine or even changing the dose. I believe he can go home. MD JUSTIN Nguyen/brain , 04:37 PM , 04:52 PM CARLOS
== END 2017-10-20 18:04 | disposition home or self-care (01) ==
LOC: NEPE 09:06 → NEDA 14:14 → N06 16:23
PROVIDERS: ADMIT Family Medicine; ATTEND Family Medicine